=== PATIENT | female | born 2005 | race Caucasian/White ===

== ENCOUNTER 2025-03-27 12:47 | Emergency (ER) | payer BC, SELFPAY ==
[2025-03-27 13:09] VITALS: BP 115/64; PULSE 79; RESP 16; TEMP 36.3; O2SAT 99
--- NOTE | 2025-03-27 13:24 | ED_ITS ---
HPI - General Adult General Chief complaint: Unspecified Stated complaint: Chest Pain Time Seen by Provider: 03/27/25 13:24 Source: patient and RN notes reviewed Mode of arrival: ambulatory Limitations: no limitations History of Present Illness HPI narrative: 19-year-old female presents to the [facility] with epigastric pain that started on Wednesday. Has had heartburn or reflux history. Reports history of a murmur. Denies any nausea vomiting. Denies shortness of breath. States that all of the pain is epigastric Denies any surgical history. Pain does not radiate anywhere. Onset (ago): day(s) (3) Treatments prior to arrival: other (Tums) Related Data Home Medications ?Medication ?Instructions ?Recorded ?Confirmed ?Last Taken ?Type doxycycline hyclate 100 mg capsule mg 03/27/25 Unknow n History norgestimate 0.18 mg/0.215mg/0.25 tablet 03/27/25 Unk nown History mg-ethinyl estradiol 0.025 mg tablet (Tri-Lo-Balbina) spironolactone 50 mg tablet mg 03/27/25 Unknown Histo ry Allergies Allergy/AdvReac Type Severity Reaction Status Date / Time Sulfa (Sulfonamide Allergy Intermediate Hives Verified 03/27/25 13:34 Antibiotics) Review of Systems Review of Systems: All systems reviewed & are unremarkable except as noted in HPI and below Constitutional: Constitutional: Reports no additional constitutional complaints ENT: Reports system reviewed and no additional complaints, except as documented Cardiovascular: Cardiovascular: Reports no additional cardiovascular complaints, Denies chest pain and Denies dyspnea Respiratory: Respiratory: Reports no additional respiratory complaints, Denies chest congestion, Denies cough and Denies dyspnea Gastrointestinal: Gastrointestinal: Reports as per HPI and Reports abdominal pain (Epigastric) Musculoskeletal: Musculoskeletal: Reports no additional musculoskeletal complaints Integumentary/Breasts: Skin/Breast: Reports system reviewed and no additional complaints, except as docu PMFSH Comments At the time of my signature, I reviewed and agree with the nursing past medical, surgical, social, and family history. There is no relevant family history pertinent to the patient complaint. Exam Const: General: cooperative, healthy appearing, comfortable, no acute distress, well developed, alert and well nourished Nutritional Appearance: well nourished Orientation/consciousness: patient oriented x3 Limitations: no limitations HENMT: Head: normal to inspection Eyes: General: appearance normal, both eyes and all related structures Alignment and Position: alignment normal Neck: Neck: normal visual inspection, full ROM, no lymphadenopathy and no meningeal signs Chest: Chest palpation & inspection: normal inspection of the chest Resp: Effort & Inspection: normal respiratory effort and able to speak in complete sentences Auscultation: clear to auscultation bilaterally, no crack les, no rales, no rhonchi and no wheezes Cardio: Rate: regular rate GI: GI Palp: Yes abdominal tenderness (Epigastric), Yes Soft to palpation and No Guarding due to palpation present (GI) Auscultation: normal bowel sounds Skin: General skin exam: normal color and no rashes or lesions noted Neuro: General: patient oriented x3, gait normal, moves all extremities and no meningeal signs Cognition (Neuro): normal cognition Speech: normal speech Gait exam (Neuro): Normal gait present Extrem: General: normal to inspection, full ROM, capillary refill normal and normal gait Psych: Appearance: grossly normal and well kempt Mental Status: mental status grossly normal Speech and movement: Normal speech and movement present and Clear speech present Affect: normal affect Attitude: cooperative Course Course Level of Care: Express Care Visit Vital Signs Vital signs: Vital Signs Temperature 97.3 F L 03/27/25 13:09 Pulse Rate 79 03/27/25 13:09 Respiratory Rate 16 03/27/25 13:09 Blood Pressure 115/64 03/27/25 13:09 Pulse Oximetry 99 03/27/25 13:09 Temperature 97.3 F L 03/27/25 13:09 Pulse Rate 79 03/27/25 13:09 Respiratory Rate 16 03/27/25 13:09 Blood Pressure 115/64 03/27/25 13:09 Pulse Oximetry 99 03/27/25 13:09 Reviewed Medical Decision Making MDM Narrative Medical decision making narrative: Patient sitting in exam room. Patient is nontoxic, vitals are stable. Patient presents with epigastric discomfort for 3 days. Discussed [id number] products most likely acid reflux, also concern for gallbladder. Discussed signs and symptoms to proceed to the emergency room due to limitations of the urgent care. Patient verbalized understanding Discharge instructions reviewed with patient, as well as provided in writing per nursing staff. The instructions also include specific and strict return/GO TO THE ER as well as f/u information. All questions have been answered, and the patient deny any further questions with discharge and discharge plan. Some parts of this dictation were generated by voice recognition software and may contain typographical and/or grammatical inaccuracies. Differential Diagnosis Differential Diagnosis: Acid reflux, cholecystitis, cholelithiasis, stress, ulcer Medical Records Medical records reviewed: Yes I reviewed the external patient's medical records. Vital Signs Vital Signs: Vital Signs Temperature 97.3 F L 03/27/25 13:09 Pulse Rate 79 03/27/25 13:09 Respiratory Rate 16 03/27/25 13:09 Blood Pressure 115/64 03/27/25 13:09 Pulse Oximetry 99 03/27/25 13:09 Temperature 97.3 F L 03/27/25 13:09 Pulse Rate 79 03/27/25 13:09 Respiratory Rate 16 03/27/25 13:09 Blood Pressure 115/64 03/27/25 13:09 Pulse Oximetry 99 03/27/25 13:09 Reviewed Lab Data Lab results reviewed: Yes I reviewed the patient's lab results. Labs: Reviewed Critical Care Time Critical Care Time Critical Care Time: No Discharge Plan Discharge Clinical Impression: Acute epigastric pain Patient Disposition: Home Condition: Stable Instructions: Epigastric Pain (ED) Additional Instructions: Keep your diet very simple. Nothing fried, greasy, spicy are highly processed. Take Prilosec 1 hour before eating every morning You can take Pepcid in the evening Stay hydrated with plenty of water. Avoid caffeinated carbonated beverages If symptoms are not improving or get it is worse please go directly to the emergency room Patient Language: Bhutanese Prescriptions: No Action doxycycline hyclate 100 mg capsule spironolactone 50 mg tablet norgestimate-ethinyl estradiol [Tri-Lo-Balbina] 0.18/0.215/0.25 mg-0.025 mg tablet Follow-up/Referrals: PHYSICIAN,EXCHANGE CLERK [Primary Care Provider, Internal Medicine] Stand Alone Forms: Work/School Release IP Time of Disposition: 13:36
== END 2025-03-27 13:45 | disposition home or self-care (01) ==
PROVIDERS: Emergency Provider Nurse Practitioner
DX: R10.13 Epigastric pain (principal); R01.1 Cardiac murmur, unspecified
CPT/HCPCS: 99202; G0463